=== PATIENT | female | born 1930 | race Caucasian/White ===

== ENCOUNTER → 2016-07-07 | Day surgery (SDC) | payer MEDICARE, BC ==
[~2016-07-07] MED LIST: LIDOCAINE HCL 1% MPF SOL ONE; TRIAMCINOLONE ACETONIDE 40 MG/ML SUS ONE
[2016-07-07 15:45] VITALS: BP 150/67; PULSE 76; RESP 16; O2SAT 96
== END | disposition home or self-care (01) | DRG 552 ==
LOC: SURG 14:23
PROVIDERS: ATTEND Nurse Anesthetist, Certified Registered
DX: M48.06 Spinal stenosis, lumbar region (principal); M54.5 Low back pain
CPT/HCPCS: J2001; J3300

== ENCOUNTER 2017-12-13 09:00 | Inpatient (IN) | payer MEDICARE, BC ==
[2017-12-13 10:08] LABS: BASOPHILS % (AUTO) 1 % (0-3); EOSINOPHILS % (AUTO) 1 % (0-9); HEMATOCRIT 25 % (35-47); HEMOGLOBIN 8.2 gm/dl (12.0-15.5); LYMPHOCYTES % (AUTO) 10.8 % (10-50); MEAN CORPUSCULAR HEMOGLOBIN 31.9 pg (27.0-32.0); MEAN CORPUSCULAR HGB CONC 33.1 gm/dl (32.0-36.0); MEAN CORPUSCULAR VOLUME 96 fL (81-99); MONOCYTES % (AUTO) 2.9 % (0-12); NEUTROPHILS % (AUTO) 84.5 % (37-80)
[2017-12-13 10:11] LABS: ALBUMIN 2.6 gm/dl (3.4-5.0); BILIRUBIN,TOTAL 0.3 mg/dl (0.2-1.0); CALCIUM 8.7 mg/dl (8.5-10.1); CREATININE 1.83 mg/dl (0.60-1.00); POTASSIUM 5.3 mMol/L (3.5-5.1); TOTAL PROTEIN 6.5 gm/dl (6.4-8.2)
[2017-12-13 10:14] LABS: APPEARANCE,URINE Slightly Cloudy; BILIRUBIN,URINE NEGATIVE (NEGATIVE); COLOR,URINE Yellow; GLUCOSE, URINE (UA) NEGATIVE (NEGATIVE); KETONES,URINE NEGATIVE (NEGATIVE); LEUKOCYTE ESTERASE ,URINE 3+ (NEGATIVE); NITRATE,URINE NEGATIVE (NEGATIVE); OCCULT BLOOD,URINE 2+ (NEG-TRACE); UROBILINOGEN,URINE 0.2 (0.2-1.0 EU)
[2017-12-13] MEDS ORDERED: SODIUM CHLORIDE 0.9% 1000ML 1,000 ML IV ONE (10:18)
[2017-12-13 10:21] LABS: BACTERIA 2+ (< 1+); CRYSTALS NEGATIVE (0-3 AVE/HPF); RBC,URINE 0-2 (0-3AV/HPF)
[2017-12-13 11:11] LABS: HEMOGLOBIN A1C 7.1 % (4.8-6.0)
[2017-12-13] MEDS ORDERED: PANTOPRAZOLE SODIUM 40 MG/10 ML PDS IV ONE (11:32)
[2017-12-13 13:36] LABS: ABO O; ANTIBODY SCREEN Negative; RH TYPE Positive; UNIT TYPE O POSITIVE
[2017-12-13] MEDS ORDERED: PANTOPRAZOLE SODIUM 40 MG/10 ML PDS ONE (15:26)
[2017-12-13] MEDS ORDERED: SODIUM CHLORIDE 0.9% 100 ML 100 ML IV ONE (15:26)
[2017-12-13] MEDS: SODIUM CHLORIDE 0.9% IV SCH (15:52)
[2017-12-13] MEDS: PANTOPRAZOLE SODIUM IV SCH (15:52)
[2017-12-13] MEDS: SODIUM CHLORIDE 0.9% 100 ML 80 ML with PANTOPRAZOLE SODIUM 40 MG VIAL 80 MG IV SCH (16:42)
[2017-12-13] MEDS ORDERED: FUROSEMIDE 20mg SOL IV ONE (17:00)
[2017-12-13] MEDS: SODIUM CHLORIDE 0.9% FLUSH 10 ML SOL IV SCH (17:06)
[2017-12-13] MEDS ORDERED: NOVOLOG FLEXPEN SC SCH (21:00)
[2017-12-13 21:26] LABS: CALCIUM 8.6 mg/dl (8.5-10.1); CARBON DIOXIDE 24.5 mEq/L (21-32); CREATININE 1.62 mg/dl (0.60-1.00); POTASSIUM 4.7 mMol/L (3.5-5.1)
[2017-12-13] MEDS: CIPROFLOXACIN HCL 500 MG TAB PO SCH (21:27)
[2017-12-13] MEDS: METOPROLOL TARTRATE 25 MG TAB PO SCH (21:29)
[2017-12-13] MEDS: SODIUM CHLORIDE 0.9% 1000ML 1,000 ML IV SCH (21:29)
[2017-12-14] MEDS ORDERED: PANTOPRAZOLE SODIUM 40 MG/10 ML PDS ONE ×3 (00:43→23:57)
[2017-12-14] MEDS ORDERED: SODIUM CHLORIDE 0.9% 100 ML 100 ML IV ONE ×3 (00:46→23:57)
[2017-12-14] MEDS: PANTOPRAZOLE SODIUM IV SCH ×3 (02:12→14:40)
[2017-12-14] MEDS: SODIUM CHLORIDE 0.9% IV SCH ×3 (02:12→14:40)
[2017-12-14] MEDS: SODIUM CHLORIDE 0.9% FLUSH 10 ML SOL IV SCH ×3 (02:13→17:19)
[2017-12-14] MEDS: LEVOTHYROXINE SODIUM 50 MCG TAB PO SCH (06:41)
[2017-12-14 07:42] LABS: BASOPHILS % (AUTO) 1 % (0-3); EOSINOPHILS % (AUTO) 6 % (0-9); HEMATOCRIT 24 % (35-47); HEMOGLOBIN 7.8 gm/dl (12.0-15.5); LYMPHOCYTES % (AUTO) 25.6 % (10-50); MEAN CORPUSCULAR HEMOGLOBIN 29.7 pg (27.0-32.0); MEAN CORPUSCULAR HGB CONC 32.3 gm/dl (32.0-36.0); MEAN CORPUSCULAR VOLUME 92 fL (81-99); MONOCYTES % (AUTO) 8.5 % (0-12); NEUTROPHILS % (AUTO) 59.5 % (37-80)
[2017-12-14 07:43] LABS: CALCIUM 8.3 mg/dl (8.5-10.1); CARBON DIOXIDE 24.9 mEq/L (21-32); CREATININE 1.56 mg/dl (0.60-1.00); POTASSIUM 3.8 mMol/L (3.5-5.1)
[2017-12-14] MEDS: METOPROLOL TARTRATE 25 MG TAB PO SCH ×2 (08:43→20:17)
[2017-12-14] MEDS: CIPROFLOXACIN HCL 500 MG TAB PO SCH ×2 (08:43→20:17)
[2017-12-14] MEDS ORDERED: TIMOLOL MALEAT OP SCH (09:00)
[2017-12-14] MEDS ORDERED: DORZOLAMIDE HCL OP SCH (09:00)
[2017-12-14] MEDS ORDERED: BISACODYL 5 MG TAB ECT PO SCH (09:00)
[2017-12-14 09:11] LABS: UNIT TYPE O POSITIVE
[2017-12-14] MEDS: NOVOLOG FLEXPEN SC SCH ×4 (10:25→20:27)
[2017-12-14 10:59] LABS: UNIT TYPE O POSITIVE
[2017-12-14] MEDS: FUROSEMIDE 40 MG SOL IV SCH ×2 (13:33→17:18)
[2017-12-14] MEDS: SODIUM CHLORIDE 0.9% 1000ML 1,000 ML IV SCH (17:05)
[2017-12-14] MEDS: POLYETHYLENE GLYCOL 17 GM/1 TBS PDS PO SCH (18:08)
[2017-12-14] MEDS: LATANOPROST 0.005% SOL OP SCH (20:17)
[2017-12-15] MEDS: SODIUM CHLORIDE 0.9% IV SCH ×3 (01:31→14:24)
[2017-12-15] MEDS: PANTOPRAZOLE SODIUM IV SCH ×3 (01:31→14:24)
[2017-12-15] MEDS: POLYETHYLENE GLYCOL 17 GM/1 TBS PDS PO SCH (04:13)
[2017-12-15] MEDS: SODIUM CHLORIDE 0.9% FLUSH 10 ML SOL IV SCH ×3 (04:14→17:36)
[2017-12-15] MEDS: LEVOTHYROXINE SODIUM 50 MCG TAB PO SCH (06:59)
[2017-12-15] MEDS ORDERED: LIDOCAINE HCL 1% MPF 30 SOL ONE (08:03)
[2017-12-15] MEDS ORDERED: PROPOFOL 500 MG/50 ML EMU IV ONE (08:03)
[2017-12-15 08:07] LABS: BASOPHILS % (AUTO) 1 % (0-3); EOSINOPHILS % (AUTO) 2 % (0-9); HEMATOCRIT 33 % (35-47); HEMOGLOBIN 10.8 gm/dl (12.0-15.5); LYMPHOCYTES % (AUTO) 11.9 % (10-50); MEAN CORPUSCULAR HEMOGLOBIN 29.5 pg (27.0-32.0); MEAN CORPUSCULAR HGB CONC 32.8 gm/dl (32.0-36.0); MEAN CORPUSCULAR VOLUME 90 fL (81-99); MONOCYTES % (AUTO) 6.9 % (0-12); NEUTROPHILS % (AUTO) 78.3 % (37-80)
[2017-12-15 08:21] LABS: CALCIUM 8.9 mg/dl (8.5-10.1); CARBON DIOXIDE 26.5 mEq/L (21-32); CREATININE 1.63 mg/dl (0.60-1.00); POTASSIUM 3.4 mMol/L (3.5-5.1)
[2017-12-15] MEDS: NOVOLOG FLEXPEN SC SCH ×3 (08:33→17:37)
[2017-12-15] MEDS ORDERED: ONDANSETRON HCL 4 MG/2 ML SOL IV PRN (08:38)
[2017-12-15] MEDS: CIPROFLOXACIN HCL 500 MG TAB PO SCH (12:55)
[2017-12-15] MEDS: METOPROLOL TARTRATE 25 MG TAB PO SCH ×2 (12:55→20:58)
[2017-12-15] MEDS: FUROSEMIDE 20 MG TAB PO SCH (12:56)
[2017-12-15] MEDS: DORZOLAMIDE/TIMOLOL 200 DROP SOL OP SCH (12:57)
[2017-12-15] MEDS: SODIUM CHLORIDE 0.9% 1000ML 1,000 ML IV SCH (13:50)
[2017-12-15] MEDS: FUROSEMIDE 40 MG TAB PO SCH (17:02)
[2017-12-15] MEDS: PANTOPRAZOLE SODIUM 40 MG ECT PO SCH (20:57)
[2017-12-15] MEDS: GLIPIZIDE 5 MG TAB PO SCH (20:57)
[2017-12-15] MEDS: LATANOPROST 0.005% SOL OP SCH (20:57)
[2017-12-16] MEDS: LEVOTHYROXINE SODIUM 50 MCG TAB PO SCH (07:10)
[2017-12-16] MEDS: SODIUM CHLORIDE 0.9% FLUSH 10 ML SOL IV SCH ×3 (07:10→16:38)
[2017-12-16 07:36] LABS: CALCIUM 8.5 mg/dl (8.5-10.1); CARBON DIOXIDE 28.7 mEq/L (21-32); CREATININE 1.16 mg/dl (0.60-1.00)
[2017-12-16 07:42] LABS: BASOPHILS % (AUTO) 1 % (0-3); EOSINOPHILS % (AUTO) 5 % (0-9); HEMATOCRIT 28 % (35-47); HEMOGLOBIN 9.2 gm/dl (12.0-15.5); LYMPHOCYTES % (AUTO) 27.1 % (10-50); MEAN CORPUSCULAR HEMOGLOBIN 29.3 pg (27.0-32.0); MEAN CORPUSCULAR HGB CONC 32.4 gm/dl (32.0-36.0); MEAN CORPUSCULAR VOLUME 90 fL (81-99); MONOCYTES % (AUTO) 11.1 % (0-12); NEUTROPHILS % (AUTO) 55.5 % (37-80)
[2017-12-16 07:46] LABS: POTASSIUM 2.9 mMol/L (3.5-5.1)
[2017-12-16] MEDS ORDERED: POTASSIUM CHLORIDE 2 MEQ/ML 60 MEQ, LIDOCAINE HCL 1% MDV 2 ML in SODIUM CHLORIDE 0.9% 1... IV ONE (07:47)
[2017-12-16] MEDS ORDERED: POTASSIUM CHLORIDE 10 MEQ TER PO SCH ×2 (08:00→09:00)
[2017-12-16] MEDS ORDERED: POTASSIUM CHLORIDE 2 MEQ/ML SOL IV ONE (08:35)
[2017-12-16] MEDS ORDERED: LIDOCAINE HCL 1% MPF 30 SOL ONE (08:43)
[2017-12-16] MEDS: FUROSEMIDE 20 MG TAB PO SCH (08:47)
[2017-12-16] MEDS: DORZOLAMIDE/TIMOLOL 200 DROP SOL OP SCH (08:47)
[2017-12-16] MEDS: METOPROLOL TARTRATE 25 MG TAB PO SCH ×2 (09:00→20:18)
[2017-12-16] MEDS: FUROSEMIDE 40 MG TAB PO SCH (14:05)
[2017-12-16] MEDS: LATANOPROST 0.005% SOL OP SCH (20:16)
[2017-12-16] MEDS: POTASSIUM CHLORIDE 10 MEQ TER PO SCH (20:17)
[2017-12-16] MEDS: PANTOPRAZOLE SODIUM 40 MG ECT PO SCH (20:18)
[2017-12-16] MEDS: GLIPIZIDE 5 MG TAB PO SCH (20:18)
[2017-12-16 23:56] VITALS: RESP 18
[2017-12-17] MEDS: SODIUM CHLORIDE 0.9% FLUSH 10 ML SOL IV SCH ×2 (03:09→08:31)
[2017-12-17] MEDS: LEVOTHYROXINE SODIUM 50 MCG TAB PO SCH (06:40)
[2017-12-17 07:26] LABS: BASOPHILS % (AUTO) 1 % (0-3); EOSINOPHILS % (AUTO) 8 % (0-9); HEMATOCRIT 31 % (35-47); HEMOGLOBIN 10.6 gm/dl (12.0-15.5); LYMPHOCYTES % (AUTO) 30.4 % (10-50); MEAN CORPUSCULAR HEMOGLOBIN 30.3 pg (27.0-32.0); MEAN CORPUSCULAR HGB CONC 33.6 gm/dl (32.0-36.0); MEAN CORPUSCULAR VOLUME 90 fL (81-99); MONOCYTES % (AUTO) 8.7 % (0-12); NEUTROPHILS % (AUTO) 52.2 % (37-80)
[2017-12-17 07:38] LABS: CALCIUM 8.8 mg/dl (8.5-10.1); CARBON DIOXIDE 25.4 mEq/L (21-32); CREATININE 1.26 mg/dl (0.60-1.00); POTASSIUM 4.3 mMol/L (3.5-5.1)
[2017-12-17 08:03] VITALS: BP 124/74; PULSE 66; TEMP 97.7; O2SAT 96
[2017-12-17] MEDS: FUROSEMIDE 20 MG TAB PO SCH (08:36)
[2017-12-17] MEDS: METOPROLOL TARTRATE 25 MG TAB PO SCH (08:36)
[2017-12-17] MEDS: DORZOLAMIDE/TIMOLOL 200 DROP SOL OP SCH (08:36)
[2017-12-17] MEDS: POTASSIUM CHLORIDE 10 MEQ TER PO SCH (08:36)
[2017-12-17] MEDS ORDERED: METFORMIN HYDROCHLORIDE 500 MG TAB PO SCH (09:00)
[2017-12-17] MEDS ORDERED: LOSARTAN POTASSIUM 50 MG TAB PO SCH (09:00)
== END 2017-12-17 11:10 | disposition home or self-care (01) | DRG 392 ==
LOC: ED 09:00 → ACUTE CARE 13:30
PROVIDERS: ADMIT Family Medicine; ATTEND Family Medicine
PROC: 30233N1 Transfusion of Nonautologous Red Blood Cells into Peripheral Vein, Percutaneous Approach (ICD-10-PCS; 2017-12-13)
PROC: 30233N1 Transfusion of Nonautologous Red Blood Cells into Peripheral Vein, Percutaneous Approach (ICD-10-PCS; 2017-12-14)
PROC: 0DB78ZX Excision of Stomach, Pylorus, Via Natural or Artificial Opening Endoscopic, Diagnostic (ICD-10-PCS; principal; 2017-12-15 11:15)
PROC: 0DJD8ZZ Inspection of Lower Intestinal Tract, Via Natural or Artificial Opening Endoscopic (ICD-10-PCS; 2017-12-15 11:15)
DX: D64.89 Other specified anemias (principal); K92.2 Gastrointestinal hemorrhage, unspecified; N17.9 Acute kidney failure, unspecified; K57.32 Diverticulitis of large intestine without perforation or abscess without bleeding; K92.1 Melena; R40.2362 Coma scale, best motor response, obeys commands, at arrival to emergency department; R40.2142 Coma scale, eyes open, spontaneous, at arrival to emergency department; R40.2252 Coma scale, best verbal response, oriented, at arrival to emergency department; E11.29 Type 2 diabetes mellitus with other diabetic kidney complication; Z79.4 Long term (current) use of insulin; K25.9 Gastric ulcer, unspecified as acute or chronic, without hemorrhage or perforation; D50.9 Iron deficiency anemia, unspecified; E87.6 Hypokalemia; R42 Dizziness and giddiness
CPT/HCPCS: 36415; 71045; 80048; 80053; 81001; 82272; 82962; 83036; 84132; 85018; 85025; 86850; 86900; 86901; 86920; 87088; 93005; 93012; 96365; 99070; 99284; J1940; J3480; P9016; A9270; A9270-GY; J1815; J2001; J2704

== ENCOUNTER 2018-02-02 08:22 | Day surgery (SDC) | payer MEDICARE, BC ==
[2018-02-02] MEDS ORDERED: LIDOCAINE HCL 1% MPF 30 SOL ONE (08:26)
[2018-02-02] MEDS ORDERED: PROPOFOL 500 MG/50 ML EMU IV ONE (08:26)
[2018-02-02 10:04] VITALS: RESP 16; TEMP 97.4; O2SAT 94
[2018-02-02 10:05] VITALS: BP 112/48; PULSE 72
== END 2018-02-02 10:29 | disposition home or self-care (01) | DRG 379 ==
LOC: SURG 08:22
PROVIDERS: ATTEND Surgery
DX: K92.2 Gastrointestinal hemorrhage, unspecified (principal); E11.9 Type 2 diabetes mellitus without complications
CPT/HCPCS: J2001; J2704

== ENCOUNTER 2018-02-09 22:05 | Emergency (ER) | payer OTHER, MEDICARE, BC ==
[2018-02-09 22:25] VITALS: TEMP 96.2
[2018-02-09] MEDS ORDERED: LIDOCAINE 1% W/EPI MPF 30 ML SOL INFIL ONE (22:50)
[2018-02-09] MEDS ORDERED: LIDOCAINE 1% W/EPI MPF 30 ML SOL ONE ×2 (22:52→22:53)
[2018-02-09] MEDS ORDERED: BACITRACIN 500 U/GM OIN TOP ONE ×2 (23:19→23:21)
[2018-02-09 23:58] VITALS: BP 144/51; PULSE 72; RESP 16; O2SAT 94
== END 2018-02-09 23:40 | disposition home or self-care (01) | DRG 159 ==
LOC: ED 22:05
DX: S01.511A Laceration without foreign body of lip, initial encounter (principal); S61.411A Laceration without foreign body of right hand, initial encounter
CPT/HCPCS: 12013; 99284; A6402; A9270-GY